=== PATIENT | female | born 1985 | race Caucasian/White ===

== ENCOUNTER 2017-06-11 20:15 | Inpatient (IN) | payer OTHER ==
[2017-06-11] MEDS: METHYLPREDNISOLONE 125 MG INJ IV (21:25)
[2017-06-11] MEDS: LEVALBUTEROL (NEB) 0.63 MG/3 ML AMP HHN ×2 (21:43→23:44)
[2017-06-11] MEDS: IPRATROPIUM (NEB) 0.5 MG/2.5 ML AMP HHN ×2 (21:43→23:44)
[2017-06-11] MEDS ORDERED: LEVALBUTEROL (NEB) 0.63 MG/3 ML AMP HHN (23:00)
[2017-06-11] MEDS ORDERED: IPRATROPIUM (NEB) 0.5 MG/2.5 ML AMP HHN (23:00)
[2017-06-12] MEDS: LEVALBUTEROL (NEB) 0.63 MG/3 ML AMP HHN ×8 (01:55→23:00)
[2017-06-12] MEDS: IPRATROPIUM (NEB) 0.5 MG/2.5 ML AMP HHN ×8 (01:55→23:00)
[2017-06-12 06:02] LABS: ADD MAN DIFF? NO
[2017-06-12 06:04] LABS: WHITE BLOOD COUNT 11.4 10^3/ul (4.8-10.8)
[2017-06-12 06:04] LABS: BASOPHILS % 0.1 % (0.0-2.0); HEMATOCRIT 36.4 % (37.0-47.0); HEMOGLOBIN 12.3 g/dl (12.0-16.0); LYMPHOCYTES # 0.7 10^3/ul (0.8-2.9); LYMPHOCYTES % 6.5 % (15.0-51.0); MEAN CORPUSCULAR HEMOGLOBIN 28.1 pg (29.0-33.0); MEAN CORPUSCULAR HGB CONC 33.8 g/dl (32.0-37.0); MEAN CORPUSCULAR VOLUME 83.1 fl (82.0-101.0); MEAN PLATELET VOLUME 9.6 fl (7.4-10.4); MONOCYTE # 0.1 10^3/ul (0.3-0.9); MONOCYTES % 0.8 % (0.0-11.0); NEUTROPHIL # 10.5 10^3/ul (1.6-7.5); NEUTROPHILS % 92.2 % (39.0-77.0); PLATELET COUNT 280 10^3/UL (140-415); RED BLOOD COUNT 4.38 10^6/ul (4.20-5.40); RED CELL DISTRIBUTION WIDTH 12.8 % (11.5-14.5)
[2017-06-12] MEDS ORDERED: NACL 0.9% 3 ML SYG IV (07:00)
[2017-06-12] MEDS ORDERED: ONDANSETRON 4 MG INJ IV (07:00)
[2017-06-12 07:39] LABS: ALANINE AMINOTRANSFERASE 19 IU/L (13-69); ALBUMIN 4.2 g/dl (3.3-4.9); ALKALINE PHOSPHATASE 61 IU/L (42-121); ANION GAP 17 (8-16); ASPARTATE AMINO TRANSFERASE 19 IU/L (15-46); BILIRUBIN,INDIRECT 0.1 mg/dl (0-1.1); BILIRUBIN,TOTAL 0.1 mg/dl (0.2-1.3); BLOOD UREA NITROGEN 9 mg/dl (7-20); CALCIUM 9.2 mg/dl (8.4-10.2); CARBON DIOXIDE 20 mmol/L (21-31); CHLORIDE 112 mmol/L (97-110); CREATININE 0.71 mg/dl (0.44-1.00); GLUCOSE 147 mg/dl (70-220); MAGNESIUM 1.7 mg/dl (1.7-2.5); PHOSPHORUS 2.4 mg/dl (2.5-4.9); POTASSIUM 4.1 mmol/L (3.5-5.1); SODIUM 145 mmol/L (135-144)
[2017-06-12] MEDS: SALMETEROL/FLUTICASONE 250/50 INHA INH (09:18)
[2017-06-12] MEDS: HEPARIN 5,000 UNIT/0.5 ML VIAL SC (09:22)
[2017-06-12] MEDS ORDERED: CEPASTAT LOZENGE MT (12:00)
[2017-06-12] MEDS: CEFTRIAXONE 1 GM/50 ML (PMX) 50 ML IVPB (12:24)
[2017-06-12] MEDS: GUAIFENESIN 20 MG/ML 5ML CUP PO ×2 (12:24→18:34)
[2017-06-12] MEDS: METHYLPREDNISOLONE 40 MG INJ IV ×2 (13:19→21:40)
[2017-06-12] MEDS: AZITHROMYCIN 500MG/NS (PMX) 250 ML IVPB (13:57)
[2017-06-12] MEDS: morphine 2 MG INJ IV (14:32)
[2017-06-12] MEDS: POTASSIUM PHOSPHATE 15 MM in SOD CHLORIDE 0.9% 250 ML IVPB (14:52)
[2017-06-12] MEDS ORDERED: METHYLPREDNISOLONE 40 MG INJ IV (21:00)
[2017-06-13] MEDS: GUAIFENESIN 20 MG/ML 5ML CUP PO ×2 (00:09→06:27)
[2017-06-13] MEDS: LEVALBUTEROL (NEB) 0.63 MG/3 ML AMP HHN ×8 (01:00→23:41)
[2017-06-13] MEDS: IPRATROPIUM (NEB) 0.5 MG/2.5 ML AMP HHN ×8 (01:00→23:41)
[2017-06-13] MEDS: METHYLPREDNISOLONE 40 MG INJ IV (06:27)
[2017-06-13 07:42] LABS: ADD MAN DIFF? NO
[2017-06-13 07:54] LABS: WHITE BLOOD COUNT 16.4 10^3/ul (4.8-10.8)
[2017-06-13 07:54] LABS: BASOPHILS % 0.1 % (0.0-2.0); HEMATOCRIT 36.1 % (37.0-47.0); LYMPHOCYTES # 1.1 10^3/ul (0.8-2.9); LYMPHOCYTES % 6.8 % (15.0-51.0); MEAN CORPUSCULAR HEMOGLOBIN 27.9 pg (29.0-33.0); MEAN CORPUSCULAR HGB CONC 33.2 g/dl (32.0-37.0); MEAN PLATELET VOLUME 10.2 fl (7.4-10.4); MONOCYTE # 0.5 10^3/ul (0.3-0.9); MONOCYTES % 2.7 % (0.0-11.0); NEUTROPHIL # 14.8 10^3/ul (1.6-7.5); PLATELET COUNT 301 10^3/UL (140-415); RED CELL DISTRIBUTION WIDTH 13.4 % (11.5-14.5)
[2017-06-13 08:12] LABS: ANION GAP 17 (8-16); BLOOD UREA NITROGEN 12 mg/dl (7-20); CALCIUM 9.1 mg/dl (8.4-10.2); CARBON DIOXIDE 27 mmol/L (21-31); CHLORIDE 105 mmol/L (97-110); CREATININE 0.64 mg/dl (0.44-1.00); GLUCOSE 121 mg/dl (70-220); MAGNESIUM 1.9 mg/dl (1.7-2.5); PHOSPHORUS 4.6 mg/dl (2.5-4.9); POTASSIUM 4.4 mmol/L (3.5-5.1); SODIUM 145 mmol/L (135-144)
[2017-06-13] MEDS: morphine 2 MG INJ IV ×2 (10:37→16:21)
[2017-06-13] MEDS ORDERED: LORAZEPAM 2 MG INJ (10:49)
[2017-06-13] MEDS: LORAZEPAM 2 MG INJ IV (10:55)
[2017-06-13] MEDS: CEFTRIAXONE 1 GM/50 ML (PMX) 50 ML IVPB (12:15)
[2017-06-13] MEDS: ALPRAZOLAM 0.25 MG TAB PO ×2 (12:32→20:02)
[2017-06-13] MEDS: MAGNESIUM SULFATE 2 GM/50 ML 50 ML IVPB (12:32)
[2017-06-13] MEDS: AZITHROMYCIN 500MG/NS (PMX) 250 ML IVPB (12:50)
[2017-06-13] MEDS: morphine LIQ (10 MG/5 ML) CUP PO (20:03)
[2017-06-14] MEDS: LEVALBUTEROL (NEB) 0.63 MG/3 ML AMP HHN ×6 (02:09→14:56)
[2017-06-14] MEDS: IPRATROPIUM (NEB) 0.5 MG/2.5 ML AMP HHN ×6 (02:09→14:56)
[2017-06-14 09:06] LABS: ADD MAN DIFF? NO
[2017-06-14 09:15] LABS: WHITE BLOOD COUNT 8.6 10^3/ul (4.8-10.8)
[2017-06-14 09:15] LABS: BASOPHILS % 0.2 % (0.0-2.0); EOSINOPHILS # 0.1 10^3/ul (0.0-0.5); EOSINOPHILS % 0.9 % (0.0-7.0); HEMATOCRIT 35.6 % (37.0-47.0); HEMOGLOBIN 11.8 g/dl (12.0-16.0); LYMPHOCYTES # 2.9 10^3/ul (0.8-2.9); LYMPHOCYTES % 33.6 % (15.0-51.0); MEAN CORPUSCULAR HEMOGLOBIN 27.9 pg (29.0-33.0); MEAN CORPUSCULAR HGB CONC 33.1 g/dl (32.0-37.0); MEAN CORPUSCULAR VOLUME 84.2 fl (82.0-101.0); MEAN PLATELET VOLUME 9.5 fl (7.4-10.4); MONOCYTE # 0.6 10^3/ul (0.3-0.9); MONOCYTES % 7.4 % (0.0-11.0); NEUTROPHIL # 4.9 10^3/ul (1.6-7.5); NEUTROPHILS % 57.5 % (39.0-77.0); PLATELET COUNT 281 10^3/UL (140-415); RED BLOOD COUNT 4.23 10^6/ul (4.20-5.40); RED CELL DISTRIBUTION WIDTH 13.2 % (11.5-14.5)
[2017-06-14 09:34] LABS: ANION GAP 14 (8-16); BLOOD UREA NITROGEN 18 mg/dl (7-20); CALCIUM 8.5 mg/dl (8.4-10.2); CARBON DIOXIDE 28 mmol/L (21-31); CHLORIDE 106 mmol/L (97-110); CREATININE 0.72 mg/dl (0.44-1.00); GLUCOSE 77 mg/dl (70-220); MAGNESIUM 2.1 mg/dl (1.7-2.5); POTASSIUM 3.9 mmol/L (3.5-5.1); SODIUM 144 mmol/L (135-144)
[2017-06-14] MEDS: ALPRAZOLAM 0.25 MG TAB PO (09:56)
[2017-06-14] MEDS: AZITHROMYCIN 500MG/NS (PMX) 250 ML IVPB (13:15)
[2017-06-14] MEDS: CEFTRIAXONE 1 GM/50 ML (PMX) 50 ML IVPB (13:58)
[2017-06-14] MEDS: FLUTICASONE 0.05% 16 GM NAS SPRAY NASAL (14:55)
[2017-06-14] MEDS: SALMETEROL/FLUTICASONE 250/50 INHA INH (14:56)
[2017-06-14] MEDS: INFLUENZA VIRUS VACCINE 0.5 ML (DISPENSING) IM* (15:02)
[2017-06-14] MEDS: METHYLPREDNISOLONE 40 MG INJ IV (15:08)
== END 2017-06-14 17:10 | disposition home or self-care (01) | DRG 203 ==
LOC: MS2 20:15 → MS4 06-13 11:50
PROC: 3E0234Z Introduction of Serum, Toxoid and Vaccine into Muscle, Percutaneous Approach (ICD-10-PCS; principal; 2017-06-14)
DX: J45.901 Unspecified asthma with (acute) exacerbation (principal); E87.6 Hypokalemia; E83.39 Other disorders of phosphorus metabolism; F41.9 Anxiety disorder, unspecified; Z23 Encounter for immunization; R00.0 Tachycardia, unspecified; D72.828 Other elevated white blood cell count; Z98.51 Tubal ligation status; Z87.891 Personal history of nicotine dependence; Z82.5 Family history of asthma and other chronic lower respiratory diseases; T38.0X5A Adverse effect of glucocorticoids and synthetic analogues, initial encounter
CPT/HCPCS: 71045; 80048; 80053; 82962; 83735; 84100; 85025; 90686; 93005; 94640

== ENCOUNTER 2018-05-24 11:05 | Inpatient (IN) | payer OTHER ==
[2018-05-24] MEDS ORDERED: NACL 0.9% 3 ML SYG IV (12:30)
[2018-05-24] MEDS ORDERED: ALBUTEROL/IPRATROPIUM (NEB) 3 ML AMP NEB (12:30)
[2018-05-24] MEDS: morphine 2 MG INJ IV ×3 (12:37→23:09)
[2018-05-24] MEDS: SOD CHLORIDE 0.9% 1,000 ML IV ×3 (12:41→23:09)
[2018-05-25] MEDS: SOD CHLORIDE 0.9% 1,000 ML IV ×2 (05:10→10:26)
[2018-05-25] MEDS: PANTOPRAZOLE 40 MG INJ IV (05:51)
[2018-05-25 05:57] LABS: ADD MAN DIFF? NO
[2018-05-25 06:03] LABS: WHITE BLOOD COUNT 4.4 10^3/ul (4.8-10.8)
[2018-05-25 06:03] LABS: BASOPHILS % 0.7 % (0.0-2.0); EOSINOPHILS # 0.2 10^3/ul (0.0-0.5); EOSINOPHILS % 3.6 % (0.0-7.0); HEMATOCRIT 30.8 % (37.0-47.0); HEMOGLOBIN 9.9 g/dl (12.0-16.0); LYMPHOCYTES # 1.6 10^3/ul (0.8-2.9); LYMPHOCYTES % 36.9 % (15.0-51.0); MEAN CORPUSCULAR HEMOGLOBIN 27.9 pg (29.0-33.0); MEAN CORPUSCULAR HGB CONC 32.1 g/dl (32.0-37.0); MEAN CORPUSCULAR VOLUME 86.8 fl (82.0-101.0); MEAN PLATELET VOLUME 9.7 fl (7.4-10.4); MONOCYTE # 0.3 10^3/ul (0.3-0.9); NEUTROPHIL # 2.3 10^3/ul (1.6-7.5); NEUTROPHILS % 51.6 % (39.0-77.0); PLATELET COUNT 246 10^3/UL (140-415); RED BLOOD COUNT 3.55 10^6/ul (4.20-5.40); RED CELL DISTRIBUTION WIDTH 12.7 % (11.5-14.5)
[2018-05-25] MEDS ORDERED: VITAMIN A & D 5 GM OINT PACKET TOP (06:09)
[2018-05-25 06:29] LABS: ALANINE AMINOTRANSFERASE 39 IU/L (13-69); ALBUMIN 2.9 g/dl (3.3-4.9); ALBUMIN/GLOBULIN RATIO 1.07; ALKALINE PHOSPHATASE 45 IU/L (42-121); ANION GAP 6 (5-13); ASPARTATE AMINO TRANSFERASE 36 IU/L (15-46); BILIRUBIN,INDIRECT 0.3 mg/dl (0-1.1); BILIRUBIN,TOTAL 0.3 mg/dl (0.2-1.3); BLOOD UREA NITROGEN 7 mg/dl (7-20); CARBON DIOXIDE 25 mmol/L (21-31); CHLORIDE 111 mmol/L (97-110); CHOL/HDL RATIO 3.4 RATIO; CHOLESTEROL 109 mg/dl (100-200); CREATININE 0.62 mg/dl (0.44-1.00); Estimated GFR > 60 mL/min (>60); GLUCOSE 57 mg/dl (70-220); HDL CHOLESTEROL 32 mg/dl (34-82); LDL CHOLESTEROL,CALCULATED 68 mg/dl; MAGNESIUM 1.8 mg/dl (1.7-2.5); PHOSPHORUS 3.5 mg/dl (2.5-4.9); POTASSIUM 4.1 mmol/L (3.5-5.1); SODIUM 142 mmol/L (135-144); TOTAL PROTEIN 5.6 g/dl (6.1-8.1); TRIGLYCERIDES 44 mg/dl (0-149)
[2018-05-25 07:27] LABS: HEMOGLOBIN A1C 5.2 % (0-5.9)
[2018-05-25] MEDS: morphine 2 MG INJ IV (07:48)
[2018-05-25] MEDS: ACCU-CHEK XX ×2 (12:16→18:13)
[2018-05-25] MEDS: DEXTROSE 5%-0.9% NACL 1,000 ML IV (13:13)
[2018-05-26] MEDS: DEXTROSE 5%-0.9% NACL 1,000 ML IV ×4 (01:30→21:00)
[2018-05-26 05:37] LABS: ADD MAN DIFF? NO
[2018-05-26] MEDS: ACCU-CHEK XX ×3 (05:43→12:13)
[2018-05-26] MEDS: PANTOPRAZOLE 40 MG INJ IV (05:43)
[2018-05-26 05:51] LABS: BASOPHILS % 0.6 % (0.0-2.0); EOSINOPHILS # 0.1 10^3/ul (0.0-0.5); EOSINOPHILS % 1.9 % (0.0-7.0); HEMATOCRIT 32.8 % (37.0-47.0); HEMOGLOBIN 10.6 g/dl (12.0-16.0); LYMPHOCYTES # 1.7 10^3/ul (0.8-2.9); LYMPHOCYTES % 36.9 % (15.0-51.0); MEAN CORPUSCULAR HEMOGLOBIN 27.2 pg (29.0-33.0); MEAN CORPUSCULAR HGB CONC 32.3 g/dl (32.0-37.0); MEAN CORPUSCULAR VOLUME 84.1 fl (82.0-101.0); MEAN PLATELET VOLUME 9.4 fl (7.4-10.4); MONOCYTE # 0.4 10^3/ul (0.3-0.9); MONOCYTES % 8.7 % (0.0-11.0); NEUTROPHIL # 2.4 10^3/ul (1.6-7.5); NEUTROPHILS % 51.7 % (39.0-77.0); PLATELET COUNT 291 10^3/UL (140-415); RED CELL DISTRIBUTION WIDTH 12.3 % (11.5-14.5)
[2018-05-26 05:51] LABS: WHITE BLOOD COUNT 4.7 10^3/ul (4.8-10.8)
[2018-05-26 06:23] LABS: IRON 53 ug/dl (35-150)
[2018-05-26 06:32] LABS: % IRON SATURATION 16 % SAT (22-52); TOTAL IRON BINDING CAPACITY 326 ug/dl (241-421)
[2018-05-26 07:00] LABS: FERRITIN 10.3 ng/ml (6.2-137.0)
[2018-05-26 07:19] LABS: ANION GAP 9 (5-13); BLOOD UREA NITROGEN 5 mg/dl (7-20); CALCIUM 8.3 mg/dl (8.4-10.2); CARBON DIOXIDE 25 mmol/L (21-31); CHLORIDE 107 mmol/L (97-110); CREATININE 0.67 mg/dl (0.44-1.00); Estimated GFR > 60 mL/min (>60); GLUCOSE 79 mg/dl (70-220); MAGNESIUM 1.8 mg/dl (1.7-2.5); PHOSPHORUS 3.4 mg/dl (2.5-4.9); POTASSIUM 3.9 mmol/L (3.5-5.1); SODIUM 141 mmol/L (135-144)
[2018-05-26 08:40] LABS: FOLATE 10.5 ng/ml (2.8-20.0)
[2018-05-26] MEDS ORDERED: ROCURONIUM 50 MG INJ (10:36)
[2018-05-26] MEDS ORDERED: ROPIVACAINE 0.5 % 30 ML VIAL (10:36)
[2018-05-26] MEDS ORDERED: FENTAnyl 50 MCG/ML VIAL (10:36)
[2018-05-26] MEDS ORDERED: PROPOFOL 20 ML (10:36)
[2018-05-26] MEDS ORDERED: MIDAZOLAM 1 MG/ML 2 ML INJ (10:36)
[2018-05-26] MEDS ORDERED: MEPERIDINE 25 MG INJ IV (11:00)
[2018-05-26] MEDS ORDERED: FENTAnyl 50 MCG/ML VIAL IV ×3 (11:00)
[2018-05-26] MEDS ORDERED: HYDROmorphONE 1 MG/5 ML IV SYRINGE IV ×3 (11:00)
[2018-05-26] MEDS ORDERED: METOCLOPRAMIDE 10 MG INJ IV (11:00)
[2018-05-26] MEDS ORDERED: DIPHENHYDRAMINE 50 MG INJ IV (11:00)
[2018-05-26] MEDS ORDERED: ONDANSETRON 4 MG INJ IV ×2 (11:00→12:00)
[2018-05-26] MEDS ORDERED: OXYCODONE/ACETAMINOPHEN (5/325) TAB PO ×2 (11:00→12:00)
[2018-05-26] MEDS ORDERED: LABETALOL HCL 20MG INJ IV (11:00)
[2018-05-26] MEDS ORDERED: EPHEDrine SULFATE 50 MG/5 ML SYG IV (11:00)
[2018-05-26] MEDS ORDERED: NEOSTIGMINE 10 MG INJ (11:08)
[2018-05-26] MEDS ORDERED: DEXAMETHASONE 4 MG/ML 5 ML INJ (11:09)
[2018-05-26] MEDS ORDERED: CEFAZOLIN 1 GM INJ (11:09)
[2018-05-26] MEDS ORDERED: KETOROLAC 30 MG INJ (11:09)
[2018-05-26] MEDS ORDERED: METOCLOPRAMIDE 10 MG INJ (11:09)
[2018-05-26] MEDS ORDERED: GLYCOPYRROLATE 0.4 MG INJ (11:09)
[2018-05-26] MEDS ORDERED: ONDANSETRON 4 MG INJ (11:09)
[2018-05-26] MEDS: BUPIVACAINE 0.5%/EPI (SDV) 30 ML INJ (11:11)
[2018-05-26] MEDS ORDERED: morphine 2 MG INJ IV (12:00)
[2018-05-26] MEDS: ONDANSETRON 4 MG INJ IV (12:07)
[2018-05-26] MEDS: morphine 2 MG INJ IV ×3 (12:07→20:07)
[2018-05-26] MEDS: OXYCODONE/ACETAMINOPHEN (5/325) TAB PO ×2 (18:57→22:47)
[2018-05-27] MEDS: DEXTROSE 5%-0.9% NACL 1,000 ML IV (05:00)
[2018-05-27 05:14] LABS: ADD MAN DIFF? NO
[2018-05-27 05:15] LABS: BASOPHILS % 0.2 % (0.0-2.0); HEMATOCRIT 33.6 % (37.0-47.0); HEMOGLOBIN 11.3 g/dl (12.0-16.0); LYMPHOCYTES # 1.7 10^3/ul (0.8-2.9); MEAN CORPUSCULAR HEMOGLOBIN 27.9 pg (29.0-33.0); MEAN CORPUSCULAR HGB CONC 33.6 g/dl (32.0-37.0); MEAN PLATELET VOLUME 9.7 fl (7.4-10.4); MONOCYTE # 0.8 10^3/ul (0.3-0.9); MONOCYTES % 6.8 % (0.0-11.0); NEUTROPHIL # 9.6 10^3/ul (1.6-7.5); NEUTROPHILS % 78.7 % (39.0-77.0); PLATELET COUNT 297 10^3/UL (140-415); RED BLOOD COUNT 4.05 10^6/ul (4.20-5.40); RED CELL DISTRIBUTION WIDTH 12.6 % (11.5-14.5)
[2018-05-27 05:15] LABS: WHITE BLOOD COUNT 12.3 10^3/ul (4.8-10.8)
[2018-05-27 05:45] LABS: ALANINE AMINOTRANSFERASE 84 IU/L (13-69); ALBUMIN 3.6 g/dl (3.3-4.9); ALBUMIN/GLOBULIN RATIO 1.12; ALKALINE PHOSPHATASE 76 IU/L (42-121); ANION GAP 9 (5-13); ASPARTATE AMINO TRANSFERASE 89 IU/L (15-46); BILIRUBIN,INDIRECT 0.2 mg/dl (0-1.1); BILIRUBIN,TOTAL 0.2 mg/dl (0.2-1.3); BLOOD UREA NITROGEN 4 mg/dl (7-20); CALCIUM 9.2 mg/dl (8.4-10.2); CARBON DIOXIDE 29 mmol/L (21-31); CHLORIDE 103 mmol/L (97-110); CREATININE 0.75 mg/dl (0.44-1.00); Estimated GFR > 60 mL/min (>60); GLUCOSE 117 mg/dl (70-220); LIPASE 66 U/L (23-300); POTASSIUM 3.8 mmol/L (3.5-5.1); SODIUM 141 mmol/L (135-144); TOTAL PROTEIN 6.8 g/dl (6.1-8.1)
[2018-05-27] MEDS: PANTOPRAZOLE (EC) 40 MG TAB PO (06:22)
[2018-05-27] MEDS: OXYCODONE/ACETAMINOPHEN (5/325) TAB PO (11:02)
[2018-05-27] MEDS: BISACODYL (EC) 5 MG TAB PO (13:53)
== END 2018-05-27 16:42 | disposition home or self-care (01) | DRG 419 ==
LOC: MS1 11:05
PROC: 0FT44ZZ Resection of Gallbladder, Percutaneous Endoscopic Approach (ICD-10-PCS; principal; 2018-05-26 10:00)
DX: K85.10 Biliary acute pancreatitis without necrosis or infection (principal); K80.20 Calculus of gallbladder without cholecystitis without obstruction; E16.2 Hypoglycemia, unspecified; J45.20 Mild intermittent asthma, uncomplicated
CPT/HCPCS: 74181; 76705; 80048; 80053; 80061; 82607; 82728; 82746; 82962; 83036; 83540; 83690; 83735; 84100; 84443; 84703; 85025; 88304